=== PATIENT | female | born 1995 | race Asian ===

== ENCOUNTER 2018-11-25 15:04 | Inpatient (IN) | payer MEDICAID ==
[2018-11-25] MEDS ORDERED: LACTATED RINGERS 1,000 ML IV ONE ×4 (15:16→23:24)
[2018-11-25] MEDS ORDERED: LIDOCAINE-MPF 1% 30 ML VIAL ONE (15:17)
[2018-11-25] MEDS ORDERED: miSOPROStol 200 MCG TABLET ONE (15:17)
[2018-11-25] MEDS ORDERED: OXYTOCIN/SODIUM CHLORIDE 500 ML IV ONE ×3 (15:17→19:12)
[2018-11-25] MEDS ORDERED: SODIUM CHLORIDE FLUSH 0.9% 10 ML SYRINGE ONE ×2 (15:17→17:31)
[2018-11-25] MEDS ORDERED: SODIUM CHLORIDE FLUSH 0.9% 10 ML SYRINGE IVP PRN ×2 (15:34→19:44)
[2018-11-25] MEDS ORDERED: TERBUTALINE 1 MG/ML VIAL SUBQ ONE ×2 (15:42→16:00)
[2018-11-25 15:51] LABS: BASOPHILS # (AUTO) 0.1 10^3/uL (0.0-0.1); BASOPHILS % (AUTO) 0.6 %; EOSINOPHILS # (AUTO) 0.1 10^3/uL (0.0-0.7); EOSINOPHILS % (AUTO) 0.6 %; HGB - HEMOGLOBIN 15.5 g/dL (12.0-16.0); LYMPHOCYTES # (AUTO) 1.3 10^3/uL (1.5-3.5); LYMPHOCYTES % (AUTO) 12.5 %; MEAN CORPUSCULAR HEMOGLOBIN 33.5 pg (27.0-31.0); MEAN CORPUSCULAR HGB CONC 34.4 g/dL (32.0-36.0); MEAN CORPUSCULAR VOLUME 97.2 fL (81.0-99.0); MONOCYTES # (AUTO) 0.6 10^3/uL (0.0-1.0); MONOCYTES % (AUTO) 6.1 %; NEUTROPHILS # (AUTO) 8.2 10^3/uL (1.5-6.6); NEUTROPHILS % (AUTO) 80.2 %; PLT - PLATELET COUNT 242 10^3/uL (130-450); RED BLOOD COUNT 4.63 10^6/uL (4.20-5.40); RED CELL DISTRIBUTION WIDTH 13.8 % (12.0-15.0); WHITE BLOOD COUNT 10.2 x10^3/uL (4.8-10.8)
[2018-11-25] MEDS ORDERED: CITRIC ACID/SODIUM CITRATE 15 ML UDC PO ONE ×2 (16:02→16:37)
[2018-11-25] MEDS: LACTATED RINGERS 1,000 ML IV SCH ×4 (16:03→23:24)
--- NOTE | 2018-11-25 16:04 | ANESTHESIA ---
Pre-Anesthesia VS, & Labs - Diagnosis intolerance of labor - Procedure primary c/s - NPO Last Food Intake: 1 hr ago - Is Patient ?: Yes - Lab Results Current Lab Results: Laboratory Tests 11/25/18 15:30: WBC 10.2, RBC 4.63, Hgb 15.5, Hct 45.0, MCV 97.2, MCH 33.5 H, MCHC 34.4, RDW 13.8, Plt Count 242, MPV 9.0, Neut # (Auto) 8.2 H, Lymph # (Auto) 1.3 L, [place] # (Auto) 0.6, Eos # (Auto) 0.1, Baso # (Auto) 0.1, Absolute Nucleated RBC 0.01, Nucleated RBC % 0.1 Lab results reviewed: Yes Fish Bones: 11/25/18 15:30 Home Medications and Allergies Active Medications Lactated Ringer's (Lr) 1,000 mls @ 150 mls/hr IV .Q6H40M ANDREI Sodium Chloride (Normal Saline Flush 0.9%) 10 ml IVP PRN PRN PRN Reason: NEEDED PER PROVIDER ORDERS PNV Allergies/Adverse Reactions: Allergies Allergy/AdvReac Type Severity Reaction Status Date / Time No Known Drug Allergies Allergy Verified 11/25/18 15:50 Anes History & Medical History - Anesthetic History Family history of Anesthesia Complications: Denies Family history of Malignant Hyperthermia: Denies - Medical History Cardiovascular: reports: None Pulmonary: reports: None Gastrointestinal: reports: GERD (during ) Urinary: reports: None Neuro: reports: None Musculoskeletal: reports: None Endocrine/Autoimmune: reports: None Blood Disorders: reports: None Smoking Status: Never smoker Psychosocial: reports: No issues indicated - Obstetrical History : 1 Parity: 0 Events: positive: None Complications: positive: None Exam General: Alert, Oriented x3, Cooperative, No acute distress Dental: WNL Mouth Openin Fingerbreadth Neck Mobility: Normal Mallampati classification: II Thyromental Distance: 4-6 cm Respiratory: Lungs clear, Normal breath sounds, No respiratory distress, No accessory muscle use Cardiovascular: Regular rate, Normal S1, Normal S2, No murmurs Mental/Cognitive Status: Alert/Oriented X3, Normal for patient Plan Anesthesia Type: Spinal Consent for Procedure(s) Verified and Reviewed: Yes Code Status: Attempt Resuscitation ASA classification: 2-Mild systemic disease Is this case an emergency?: Yes
[2018-11-25] MEDS ORDERED: ceFAZolin 2 GM/50 ML 2 GM/50 ML BAG IV ONE (17:28)
[2018-11-25] MEDS ORDERED: KETOROLAC 30 MG/ML VIAL IVP ONE (18:55)
[2018-11-25] MEDS ORDERED: MORPHINE PF 5 MG/10 ML AMP EP ONE (18:55)
[2018-11-25] MEDS ORDERED: fentaNYL 100 MCG/2 ML VIAL IVP ONE (18:55)
[2018-11-25] MEDS ORDERED: ONDANSETRON 4 MG/2 ML VIAL IVP ONE (18:55)
[2018-11-25] MEDS ORDERED: PHENYLEPHRINE 50 MG/5 ML VIAL IV ONE (18:55)
[2018-11-25] MEDS ORDERED: ONDANSETRON 4 MG/2 ML VIAL IVP PRN (19:44)
[2018-11-25] MEDS ORDERED: diphenhydrAMINE 25 MG CAPSULE PO PRN (19:44)
[2018-11-25] MEDS ORDERED: oxyCODONE 5 MG TABLET PO PRN (19:44)
--- NOTE | 2018-11-25 20:10 | HISTORY & PHYSICAL EXAMINATION ---
Chief Complaint - Chief Complaint Chief Complaint: Contractions History of Present Illness - Admitted From Admitted From:: [facility] - History Obtained From Records Reviewed: Yes History obtained from: Vanita Bruan CNM - History of Present Illness HPI Comment/Other: Patient is 23 yo EDC 11/20/17 @ 41 5/7 weeks transferred by CNEmanuel Braun after patient was noted to have FHR deceleration lasting over 1 minute with a kenzie of 55 bpm for 45 seconds, with slow return to baseline. Patient was scheduled to undergo IOL in [place] tomorrow and was transferred here for delivery by for NRFHR. Upon arrival patient noted to have regular contractions approx. q8 min., moderate in intensity and Cervix of 4/80/-3 with BOWI and no vaginal bleeding, FHR approx. 150 bpm with another FHR deceleration after arrival down to approx 70-80 bpm lasting one minute. Patient was counseled and consented for Primary for NRFHR far from delivery. She had a third deceleration similar to the second one prior to going back to the OR. SQ terbutaline was given to quiet the uterus upon arrival. 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 : reports: None HEENT: reports: None Psych: reports: None Musculoskeletal: reports: None Derm: reports: None MRSA Hx?: No - Past Surgical History Other past surgical history: PSH NEG - Family & Social History Living Situation: Unknown Social History Notes: SHX: NEG FOR SMOKING/ETOH/DRUGS - Substance History Use: Uses substance without health or social issues: NONE Abuse: Recurrent use of substance despite neg consequences: NONE Dependence: Experiences withdrawal or developed tolerances: NONE Meds/Allgy - Allergies Allergies/Adverse Reactions: Allergies Allergy/AdvReac Type Severity Reaction Status Date / Time No Known Drug Allergies Allergy Verified 11/25/18 15:50 Review of Systems - Constitutional Constitutional: reports: Other (ROS NEG FOR ALL SYSTEMS ABOVE.) Exam - Vital Signs Vital Signs: Vital Signs x48h Temp Pulse Pulse Resp BP BP Pulse Ox 11/25/18 19:45 36.8 C 82 16 131/88 H 99 11/25/18 19:30 36.5 C 83 16 124/86 H 97 11/25/18 19:20 36.7 C 82 16 128/76 96 11/25/18 19:15 78 16 125/91 H 97 11/25/18 19:10 36.4 C L 84 17 124/65 97 11/25/18 19:07 36.6 C 81 16 121/80 97 11/25/18 15:25 37.7 C H 100 22 131/98 H 99 - Physical Exam General Appearance: positive: No acute distress, Alert, Mild distress (SECONDARY TO CONTRACTIONS) Eyes Bilateral: positive: Normal inspection ENT: positive: ENT inspection nml Neck: positive: Nml inspection Respiratory: positive: Chest non-tender Cardiovascular: positive: Regular rate & rhythm Peripheral Pulses: positive: 2+ Abdomen: positive: Non-tender, No organomegaly, No distention Back: positive: Nml inspection Skin: positive: Color nml Extremities: positive: Non-tender, Full ROM, Nml appearance Neurologic/Psychiatric: positive: Oriented x3, Motor nml (CERVIX 4/80/- 3/VTX/BOWI) Conclusion/Plan - Problem List (1) Labor abnormality Conclusion/Plan: 41 5/7 weeks in labor at 4/80/-3 with multiple FHR decelerations prior to and after admission down to as low as 55 bpm far from delivery. BOWI, GBS Negative Admitted for delivery by Section. Patient and FOB present during counseling and consent process. All questions answered to their satisfaction. FHR reassuring immediately prior to going to OR. MBT RH + - Lab Results Lab results reviewed: Yes Fish Bones: 11/25/18 15:30
--- NOTE | 2018-11-25 20:49 | PROCEDURE REPORT ---
Hospitalist Procedure Note - Procedure Note Procedure Note: POST-OP NOTE INDICATION: 41+ WEEKS, NRFHR PRE-OP DX: SAME POST-OP DX: SAME SURGERY: LUST SURGEON: GUILHERME IRON MELTER: JORDI HYATT ANS: SPINAL HAT BODY SORTER: SERA NGUYEN MACHINE MAINTENANCE SERVICER FINDINGS: SMALL AMOUNT OF CLEAR AF IN UTERUS, NORMAL CORD AND PLACENTA GROSSLY, NORMAL ADNEXA BL. DELIVERY PRODUCTIVE OF VIABLE MALE BORN AT 1818 HOURS WITH 8/9. PERIOPERATIVE ABX: ZITHROMAX 500 MG, ANCEF 2 GM DRAIN: PIERRE SPECIMEN: CORD GASES (PENDING) EBL: 500 ML LR: 800 ML UO: 300 ML COMPLICATIONS: NONE CONDITION: STABLE COMMENTS: FHR IN 120s - 130s RANGE IN OR PRIOR TO SPINAL.
[2018-11-25] MEDS: SIMETHICONE CHEW 80 MG TABLET PO SCH (22:10)
[2018-11-25] MEDS: DOCUSATE SODIUM 100 MG CAPSULE PO SCH (22:10)
[2018-11-26] MEDS ORDERED: SODIUM CHLORIDE FLUSH 0.9% 10 ML SYRINGE IVP SCH (01:00)
[2018-11-26] MEDS: KETOROLAC 30 MG/ML VIAL IV SCH ×3 (01:19→14:03)
--- NOTE | 2018-11-26 02:28 | OPERATIVE REPORT ---
DATE OF SERVICE: 11/25/2018 Physician: Stevenson He DO INDICATION FOR OPERATION: This is a 23-year-old female, 1, para 0 at 41+ weeks gestation with nonreassuring heart rate, deceleration down to 55 beats per minute, and several subsequent heart rate decelerations far from delivery at 4 cm dilation. PREOPERATIVE DIAGNOSES 1. Forty-one weeks' gestation. 2. Nonreassuring heart rate tracing. 3. Early labor. POSTOPERATIVE DIAGNOSES 1. Forty-one weeks' gestation. 2. Nonreassuring heart rate tracing. 3. Early labor. OPERATION PERFORMED: Low transverse section. SURGEON: Stevenson He DO. RESEARCH MICROBIOLOGIST: Lonnie Buchanan MD. ANESTHESIA: Spinal. ANESTHESIA PROVIDER: Opal Osorio CRNA. INTRAOPERATIVE FINDINGS: There was a small amount of clear amniotic fluid upon entry into the uterine cavity, normal umbilical cord and placenta grossly, normal adnexa bilaterally. The delivery was productive of a viable female born at 1818 with Apgars of 8 and 9. The weight is pending at this time. PERIOPERATIVE ANTIBIOTICS: Zithromax 500 mg and Ancef 2 grams. DRAINS INTRAOPERATIVELY AND POSTOPERATIVELY: Pro catheter. SPECIMENS SUBMITTED: Cord gases, which are pending. INTRAOPERATIVE FLUIDS: Lactated Ringer's 800 mL. ESTIMATED BLOOD LOSS: 500 mL. URINE OUTPUT: 300 mL. COMPLICATIONS: None. CONDITION: Stable. DESCRIPTION OF PROCEDURE: The patient was thoroughly counseled and consented prior to surgery. She was taken to the operating room where continuous heart rate monitoring was performed with the Doppler prior to spinal anesthetic, which was uncomplicated. The patient was placed in supine position with the right hip roll, prepped and draped in routine fashion. After the patient was prepped and draped, surgical timeout was performed by me. The patient's anesthetic level was tested, and it was noted to be appropriate for surgery. A Pfannenstiel incision was made, sharp dissection was carried down to the level of the fascia, which was nicked on both sides of the midline. The fascial incision was extended laterally and upward sharply. The peritoneal cavity was entered bluntly. A bladder blade was inserted, a bladder flap created, and a low transverse uterine incision was made, which was extended laterally and upward sharply with bandage scissors. Clear amniotic fluid was noted upon the entry into the uterine cavity. The head was delivered through the uterine cavity and with fundal pressure, the was delivered easily through the uterine incision without complication. The umbilical cord was clamped x2, cut between the clamps, and the infant was handed to the pediatric provider. A segment of umbilical cord was set aside for cord gases. Cord blood was then obtained. IV Pitocin was started. The placenta delivered spontaneously. The uterus was exteriorized and wrapped with a moist laparotomy sponge. The uterine cavity was cleansed with minimal amount of amniotic membranes noted at the edge of the incision. The uterine incision was closed with two layers of #1 chromic, the first a running locking layer, the second an imbricating layer, with several [id number] sutures of #1 chromic and two [id number] sutures of 0 chromic along the incision required for hemostasis. Good hemostasis was then noted. The posterior and anterior cul-de-sacs were irrigated and suctioned and noted to be dry. The uterus and adnexa were then reinserted into the abdomen without difficulty. The uterine incision, peritoneal edges, and muscle bellies were inspected and noted to be dry. All instruments were removed from the abdomen. The fascia was closed with a running #1 Vicryl. The subcutaneous fat was irrigated, suctioned, and noted to be dry. The skin was reapproximated with a running subcuticular suture of 3-0 Monocryl, followed by Steri-Strips and a sterile dressing. The patient was recovered from anesthesia without complication and transferred to the recovery room in good condition. All sponge, needle, and instrument counts were correct. TD: 11/25/2018 21:09 BASSAM
[2018-11-26] MEDS: ACETAMINOPHEN 500 MG TABLET PO SCH ×3 (04:42→18:41)
[2018-11-26 05:37] LABS: BASOPHILS % (AUTO) 0.2 %; EOSINOPHILS # (AUTO) 0.1 10^3/uL (0.0-0.7); EOSINOPHILS % (AUTO) 0.7 %; LYMPHOCYTES # (AUTO) 1.5 10^3/uL (1.5-3.5); LYMPHOCYTES % (AUTO) 12.2 %; MEAN CORPUSCULAR HEMOGLOBIN 32.9 pg (27.0-31.0); MEAN CORPUSCULAR HGB CONC 33.2 g/dL (32.0-36.0); MEAN PLATELET VOLUME 8.3 fL (7.9-10.8); MONOCYTES # (AUTO) 0.7 10^3/uL (0.0-1.0); MONOCYTES % (AUTO) 6.2 %; NEUTROPHILS # (AUTO) 9.6 10^3/uL (1.5-6.6); NEUTROPHILS % (AUTO) 80.7 %; PLT - PLATELET COUNT 188 10^3/uL (130-450); RED BLOOD COUNT 3.96 10^6/uL (4.20-5.40); RED CELL DISTRIBUTION WIDTH 13.6 % (12.0-15.0); WHITE BLOOD COUNT 11.9 x10^3/uL (4.8-10.8)
[2018-11-26] MEDS: DOCUSATE SODIUM 100 MG CAPSULE PO SCH ×2 (08:14→20:30)
[2018-11-26] MEDS: SIMETHICONE CHEW 80 MG TABLET PO SCH ×2 (08:14→14:03)
[2018-11-26] MEDS: LACTATED RINGERS 1,000 ML IV SCH (08:24)
--- NOTE | 2018-11-26 13:03 | PROVIDER PROGRESS NOTE ---
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) Prog Note Time: 13:02 - Subjective Pt reports feeling: Improved (POD # 1 S/P LUST C/S No complaints, tolerating diet, ambulating, voiding, denies heavy vaginal bleeding.) Objective - Vital Signs/Intake & Output Vital Signs: Vital Signs x48h Temp Pulse Resp BP BP Pulse Ox 11/26/18 11:44 37.3 C 66 16 126/76 96 11/26/18 08:15 36.7 C 74 16 113/65 Intake & Output: Intake & Output 11/23/18 11/24/18 11/25/18 11/26/18 23:59 23:59 23:59 23:59 Intake Total 7239.356 2174 Output Total 750 1810 Balance 302.914 6371 - Objective General Appearance: positive: No acute distress Abdomen: positive: Non-tender (UX Firm U-4 and NT Dressing on) Skin: positive: Color nml (Ux Firm U-4 and NT ABD dressing on) Extremities: positive: Non-tender, Full ROM, Nml appearance, No pedal edema - Lab Results Fish Bones: 11/26/18 05:30 Other Labs: Lab Results x24hrs 11/26/18 11/25/18 11/25/18 Range/Units 05:30 16:00 15:30 WBC 11.9 H (4.8-10.8) x10^3/uL RBC 3.96 L (4.20-5.40) 10^6/uL Hgb 13.0 (12.0-16.0) g/dL Hct 39.2 (37.0-47.0) % MCV 99.0 (81.0-99.0) fL MCH 32.9 H (27.0-31.0) pg MCHC 33.2 (32.0-36.0) g/dL RDW 13.6 (12.0-15.0) % Plt Count 188 (130-450) 10^3/uL MPV 8.3 (7.9-10.8) fL Neut # (Auto) 9.6 H (1.5-6.6) 10^3/uL Lymph # (Auto) 1.5 (1.5-3.5) 10^3/uL [place] # (Auto) 0.7 (0.0-1.0) 10^3/uL Eos # (Auto) 0.1 (0.0-0.7) 10^3/uL Baso # (Auto) 0.0 (0.0-0.1) 10^3/uL Absolute Nucleated RBC 0.00 x10^3/uL Nucleated RBC % 0.0 /100WBC Blood Type A POSITIVE Blood Type Recheck A POSITIVE Antibody Screen NEGATIVE 11/25/18 Range/Units 15:30 WBC 10.2 (4.8-10.8) x10^3/uL RBC 4.63 (4.20-5.40) 10^6/uL Hgb 15.5 (12.0-16.0) g/dL Hct 45.0 (37.0-47.0) % MCV 97.2 (81.0-99.0) fL MCH 33.5 H (27.0-31.0) pg MCHC 34.4 (32.0-36.0) g/dL RDW 13.8 (12.0-15.0) % Plt Count 242 (130-450) 10^3/uL MPV 9.0 (7.9-10.8) fL Neut # (Auto) 8.2 H (1.5-6.6) 10^3/uL Lymph # (Auto) 1.3 L (1.5-3.5) 10^3/uL [place] # (Auto) 0.6 (0.0-1.0) 10^3/uL Eos # (Auto) 0.1 (0.0-0.7) 10^3/uL Baso # (Auto) 0.1 (0.0-0.1) 10^3/uL Absolute Nucleated RBC 0.01 x10^3/uL Nucleated RBC % 0.1 /100WBC Blood Type Blood Type Recheck Antibody Screen Assessment/Plan - Problem List (2) care and examination Impression: Impression/Plan: POD #1 S/P LUST C/S for NRFHR Doing well D/C IV fluids now Routine care.
[2018-11-26] MEDS: IBUPROFEN 800 MG TABLET PO SCH (20:30)
[2018-11-27] MEDS: ACETAMINOPHEN 500 MG TABLET PO SCH ×2 (02:52→11:57)
--- NOTE | 2018-11-27 08:25 | Discharge Plan ---
Discharge Plan Disposition: Home, Self Care Prescriptions: Ibuprofen [Motrin] 800 mg PO Q8H #60 tablet Diet: Regular Activity Restrictions: SEE INSTRUCTIONS Shower Restrictions: No Driving Restrictions: Yes (NO DRIVING X 3 WEEKS, VERBAL BY DOCTOR) Weight Bearing: Full Weight Additional Instructions or Follow Up instructions: FOLLOW UP WITH DR. RODRIGUES IN 2 WEEKS AT [facility] No Smoking: If you smoke, Please STOP! Call for help. Follow-up with: Pollo Rodrigues MD [Provider Admit Priv/Credential] - Justin Prakash LMW [Primary Care Provider] - 6 Weeks (FOLLOW UP WITH JUSTIN PRAKASH 6 WEEKS )
[2018-11-27] MEDS: SIMETHICONE CHEW 80 MG TABLET PO SCH ×2 (09:08→11:57)
[2018-11-27] MEDS: DOCUSATE SODIUM 100 MG CAPSULE PO SCH (09:08)
--- NOTE | 2018-11-27 09:49 | DISCHARGE SUMMARY ---
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 G1 now P1 admitted 11/25/18 at 41 5/7 weeks EGA from [place] due to FHR deceleration noted during NST there. Patient was scheduled to be induced on 11/26/18. She was transferred to [facility] for delivery due to NRFHR. Her She was noted to be lashon approx. q8 min on admission with cervix 4/80/- 3/VTX/BOWI. She was admitted for delivery. course has been unremarkable. PMH Neg PSH Neg NKDA Meds PNV SHx: Neg - CONSULTS | PROCEDURES Procedures: CONTINUOUS MONITORING SPINAL ANESTHESIA LOW TRANSVERSE SECTION - HOSPITAL COURSE Hospital Course: The patient was admitted the afternoon of 11/25/18 and prepared for Section. During NST monitoring on L&D prior to surgery, there were two separate FHR decelerations down to approx. 80 bpm with slow return. The patient required terbutaline SQ to slow down her uterine contractions preoperatively. She was counseled and consented for surgery and delivered by a viable female infant at 1818 hours weighing 3535 GM and 8/9. There was only a small amount of amniotic fluid noted inside uterine cavity at delivery. Surgery was uncomplicated. Both mother and baby did well post-op. Patient is ready for discharge on POD #2. She declines p.o. narcotic pain meds for home, will take motrin and tylenol. Skin closed with SQ Monocryl and steri-strips. - ALLERGIES Allergies/Adverse Reactions: Allergies Allergy/AdvReac Type Severity Reaction Status Date / Time No Known Drug Allergies Allergy Verified 11/25/18 15:50 - MEDICATIONS Home Medications: Ambulatory Orders Medication Instructions Recorded Confirmed Ibuprofen [Motrin] 800 mg PO Q8H #60 tablet 11/27/18 Home Medications Other | Comments: Motrin 800 mg #60: 1 p.o. q8h WH prn pain 1 RF Colace 100 mg #30: 1 p.o. q12h prn - PHYSICAL EXAM AT DISCHARGE General Appearance: positive: No acute distress, Alert Peripheral Pulses: positive: 2+ Abdomen: positive: Non-tender (Ux firm U-4 and NT, incision clean and dry) Back: positive: Nml inspection Skin: positive: Color nml, No rash Extremities: positive: Non-tender, Full ROM, Nml appearance, No pedal edema Neurologic/Psychiatric: positive: Oriented x3, CN's nml (2-12), Motor nml - LABS Result Diagrams: 11/26/18 05:30 - FOLLOW UP Follow Up: Dr. Rodrigues at [facility] in 2 weeks for incision check. Vanita Varma in [place] in 6 weeks for visit. - TIME SPENT Time Spent in Discharge (Minutes): 45"
[2018-11-27 09:50] VITALS: BP 127/77
[2018-11-27] MEDS: IBUPROFEN 800 MG TABLET PO SCH (11:57)
== END 2018-11-27 17:00 | disposition home or self-care (01) | DRG 788 ==
LOC: WFO 15:04 → FBP 15:06 → WFO 15:33 → FBP 15:34
PROVIDERS: ADMIT Obstetrics & Gynecology; ATTEND Obstetrics & Gynecology
PROC: 10D00Z1 Extraction of Products of Conception, Low, Open Approach (ICD-10-PCS; principal; 2018-11-25 15:30)
DX: O76 Abnormality in fetal heart rate and rhythm complicating labor and delivery (principal); O48.0 Post-term pregnancy; Z3A.41 41 weeks gestation of pregnancy; Z37.0 Single live birth
CPT/HCPCS: 36415; 85025; 86850; 86900; 86901

== ENCOUNTER 2018-12-26 08:00 | Outpatient (CLI) | payer MEDICAID | END 2018-12-26 23:59 | disposition home or self-care (01) | LOC: LAB.R 08:00 | PROVIDERS: ATTEND Obstetrics & Gynecology | DX: O86.02 Infection of obstetric surgical wound, deep incisional site (principal) | CPT/HCPCS: 87070; 87075; 87076; 87205 ==